=== PATIENT | male | born 1955 | race African-American/Black ===

== ENCOUNTER 2017-12-17 00:14 | Emergency (ER) | payer OTHER ==
[~2017-12-17 00:14] MED LIST: BAYER CHEWABLE81 MG PO; BOOST237 M1 PO; DEPO-PROVER150 MG/M1; GLUCOPHAGE1000 MG PO; GLYBURIDE 5 MG T5 M1 PO; NOVOLOG100 UNIT/1 SUBQ; PHENYTOIN50 MG PO; RESTORIL30 MG PO; SIMVASTATIN20 MG PO; VITAMIN D-32000 UNIT PO; VITAMIN D3400 UNI2 PO; ZYPREXA20 MG PO; [UNRECOGNIZED DRUG - OTHER] PO
[2017-12-17 00:54] LABS: ABSOLUTE NEUTROPHILS 9.2 thou/uL (1.4-8.2); BASOPHILS 0.5 % (0.0-2.0); EOSINOPHILS 2.7 % (0.0-3.0); HEMATOCRIT 39.5 % (42.0-52.0); HEMOGLOBIN 13.1 gm/dL (14.0-18.0); LYMPHOCYTES 9.8 % (24.0-44.0); MCH 28.8 pg (26.0-34.0); MCHC 33.2 g/dL (28.0-37.0); MCV 86.8 fL (80.0-100.0); PLATELET COUNT 214 thou/uL (150-400); RBC 4.55 mil/uL (4.50-6.00); RDW 14.1 % (10.5-14.5); WBC 11.5 thou/uL (4.0-11.0)
[2017-12-17 00:58] LABS: ANION GAP 16 mmol/L (7-16); BUN 19 mg/dL (7-18); CALCIUM 8.9 mg/dL (8.5-10.1); CHLORIDE 100 mmol/L (98-107); CO2 20 mmol/L (21-32); CREATININE 1.8 mg/dL (0.7-1.3); GLUCOSE 194 mg/dL (74-106); POTASSIUM 3.7 mmol/L (3.5-5.1); SODIUM 136 mmol/L (136-145)
[2017-12-17 01:07] LABS: ALBUMIN 3.6 g/dL (3.4-5.0); MAGNESIUM 2.1 mg/dL (1.8-2.4); SGOT 20 U/L (15-37); SGPT 29 U/L (30-65); TOTAL BILIRUBIN 0.2 mg/dL (<0.1-1.0); TOTAL PROTEIN 7.2 g/dL (6.4-8.2); TROPONIN-I < 0.04 ng/mL (<0.06)
== END 2017-12-17 05:07 ==
LOC: ER 00:14
PROVIDERS: Emergency Medicine
DX: G40.909 Epilepsy, unspecified, not intractable, without status epilepticus (principal); E11.22 Type 2 diabetes mellitus with diabetic chronic kidney disease; N18.9 Chronic kidney disease, unspecified; K21.9 Gastro-esophageal reflux disease without esophagitis; F20.9 Schizophrenia, unspecified

== ENCOUNTER 2018-02-24 22:20 | Inpatient (IN) | payer OTHER ==
[~2018-02-24] VITALS: Ht 172.7 cm; Wt 61.1 kg
--- NOTE | ~2018-02-24 | EKG ---
[address] [employer] [place] [address] ELECTROCARDIOGRAM REPORT Name: HEENA NO Room #: 236-P ADM IN M.R.#: [id number] Admission: 02/25/18 Attend Phys: Gilberto Bishop Discharge: Date of : 57 Report #: [id number] THIS REPORT FOR: //name// [facility] ED Test Date: 2018-02-24 Test Time: 22:35:00 Pat Name: HEENA NO Department: Room: [facility] Gender: M Steel [employer]inder: jljose : 1955 Requested By: Dick Garza Order Number: [id number] MD: Randy Machuca Measurements Intervals Brady Rate: 117 P: 69 MI: 114 QRS: 74 QRSD: 77 T: 62 QT: 324 QTc: 452 Interpretive Statements Sinus tachycardia Borderline low voltage, extremity leads Compared to ECG 04/10/2015 17:22:16 T-wave abnormality no longer present Electronically Signed On 02-25-2018 10:55:31 CDT by Randy Machuca [email or web address] <ELECTRONICALLY SIGNED> By: Randy Machuca MD, [facility] 02/25/18 1055 34 34 Randy Machuca MD, [facility] /EPI
[~2018-02-24 22:20] MED LIST changes: -DEPO-PROVER150 MG/M1; +DEPO-PROVER150 MG/M1 IM
[2018-02-24 22:22] VITALS: BP 118/65
[2018-02-24 22:48] LABS: ABSOLUTE NEUTROPHILS 7.6 thou/uL (1.4-8.2); BASOPHILS 0.6 % (0.0-2.0); EOSINOPHILS 4.9 % (0.0-3.0); HEMATOCRIT 38.2 % (42.0-52.0); LYMPHOCYTES 11.1 % (24.0-44.0); MCH 29.7 pg (26.0-34.0); MCHC 34.2 g/dL (28.0-37.0); MCV 86.9 fL (80.0-100.0); MONOCYTES 7.8 % (1.0-8.0); PLATELET COUNT 199 thou/uL (150-400); POLYS 75.6 % (36.0-66.0); RBC 4.39 mil/uL (4.50-6.00); RDW 14.2 % (10.5-14.5)
[2018-02-24 22:58] LABS: ANION GAP 20 mmol/L (7-16); BUN 23 mg/dL (7-18); CALCIUM 8.7 mg/dL (8.5-10.1); CHLORIDE 102 mmol/L (98-107); CO2 14 mmol/L (21-32); CREATININE 1.9 mg/dL (0.7-1.3); GLUCOSE 97 mg/dL (74-106); POTASSIUM 4.1 mmol/L (3.5-5.1); SODIUM 136 mmol/L (136-145)
[2018-02-24 23:15] LABS: URINE BILIRUBIN NEGATIVE (Negative); URINE BLOOD 1+ (Negative); URINE CLARITY CLEAR; URINE COLOR YELLOW; URINE GLUCOSE-RANDOM* NEGATIVE (Negative); URINE KETONES NEGATIVE (Negative); URINE NITRITE-REFLEX NEGATIVE (Negative); URINE PROTEIN (DIPSTICK) TRACE (Negative); URINE UROBILINOGEN 0.2 E.U./dl (0.2-1.0)
[2018-02-24 23:16] LABS: ALBUMIN 3.7 g/dL (3.4-5.0); SGOT 19 U/L (15-37); SGPT 26 U/L (30-65); TOTAL BILIRUBIN 0.2 mg/dL (<0.1-1.0); TOTAL PROTEIN 7.7 g/dL (6.4-8.2); TROPONIN-I <0.06 ng/mL (<0.06)
[2018-02-24 23:20] LABS: URINE LEUKOCYTES-REFLEX 1+ (Negative)
[2018-02-24 23:28] LABS: BACTERIA-REFLEX 1-9 Few /HPF (None Seen); CASTS None Seen /LPF (None Seen); CRYSTALS None Seen /LPF (None Seen); MUCUS 0-3 Light strn/LPF (None Seen); SQUAMOUS None Seen /LPF (0-3); URINE RBC 0-2 Rare /HPF (0-2); URINE WBC-REFLEX 0-5 Rare /HPF (0-5)
[2018-02-25] VITALS (20 sets, daily range): BP systolic 130–151; BP diastolic 64–94
[2018-02-25] MEDS ORDERED: CARVEDILOL3.125 MG PO (01:25)
[2018-02-25] MEDS ORDERED: VIMPAT50 MG PO (01:26)
[2018-02-25] MEDS ORDERED: FLOMAX0.4 MG PO (01:27)
[2018-02-25] MEDS ORDERED: MIRALAX17 GM PO (01:28)
[2018-02-25] MEDS ORDERED: SENNA S TABLET1 EACH PO (01:29)
[2018-02-25] MEDS ORDERED: LISINOPRIL2.5 MG PO (01:29)
[2018-02-25 08:46] LABS: CALCIUM 8.4 mg/dL (8.5-10.1); CREATININE 1.5 mg/dL (0.7-1.3); POTASSIUM 4.1 mmol/L (3.5-5.1)
[2018-02-26] VITALS (10 sets, daily range): BP systolic 112–169; BP diastolic 70–92
[2018-02-26 10:44] LABS: ALBUMIN 3.2 g/dL (3.4-5.0); CALCIUM 8.2 mg/dL (8.5-10.1); CREATININE 1.2 mg/dL (0.7-1.3); MAGNESIUM 1.7 mg/dL (1.8-2.4); POTASSIUM 3.5 mmol/L (3.5-5.1); TOTAL BILIRUBIN 0.5 mg/dL (<0.1-1.0); TOTAL PROTEIN 6.4 g/dL (6.4-8.2)
[2018-02-26 10:45] LABS: HEMATOCRIT 37.4 % (42.0-52.0); HEMOGLOBIN 12.8 gm/dL (14.0-18.0); MCH 29.3 pg (26.0-34.0); MCHC 34.2 g/dL (28.0-37.0); MCV 85.6 fL (80.0-100.0); RBC 4.37 mil/uL (4.50-6.00); RDW 14.3 % (10.5-14.5); WBC 12.1 thou/uL (4.0-11.0)
[2018-02-27 03:21] LABS: HEMATOCRIT 41.2 % (42.0-52.0); HEMOGLOBIN 13.9 gm/dL (14.0-18.0); MCH 29.3 pg (26.0-34.0); MCHC 33.8 g/dL (28.0-37.0); MCV 86.5 fL (80.0-100.0); RBC 4.76 mil/uL (4.50-6.00); RDW 14.4 % (10.5-14.5); WBC 11.2 thou/uL (4.0-11.0)
[2018-02-27 03:45] LABS: CALCIUM 9.6 mg/dL (8.5-10.1); CREATININE 1.3 mg/dL (0.7-1.3); MAGNESIUM 1.8 mg/dL (1.8-2.4); POTASSIUM 3.8 mmol/L (3.5-5.1)
[2018-02-27 07:43] VITALS: BP 140/74
[2018-02-27 10:11] VITALS: BP 120/53
[2018-02-27] MEDS ORDERED: LEVAQUIN 500 M500 M1 PO (16:41)
[2018-02-27] MEDS ORDERED: VIMPAT100 MG PO (16:42)
[2018-02-27] MEDS ORDERED: ZYPREXA 5 MG TAB5 M1 PO (16:42)
[2018-02-27] MEDS ORDERED: REMERON 30 MG T30 M1 PO (16:42)
[2018-02-27 17:23] VITALS: BP 139/77
== END 2018-02-27 17:51 | DRG 872 ==
LOC: ER 22:20 → EROBS 02-25 → 2N 02-25 → ICU 02-25 00:57 → 2N 02-26 11:25
PROVIDERS: Emergency Medicine; Hospitalist; Internal Medicine; Nurse Practitioner Acute Care
DX: A41.9 Sepsis, unspecified organism (principal); N39.0 Urinary tract infection, site not specified; G81.94 Hemiplegia, unspecified affecting left nondominant side; M62.82 Rhabdomyolysis; R65.20 Severe sepsis without septic shock; K21.9 Gastro-esophageal reflux disease without esophagitis; I12.9 Hypertensive chronic kidney disease with stage 1 through stage 4 chronic kidney disease, or unspecified chronic kidney disease; E11.22 Type 2 diabetes mellitus with diabetic chronic kidney disease; N18.3 Chronic kidney disease, stage 3 (moderate); F20.9 Schizophrenia, unspecified; G40.909 Epilepsy, unspecified, not intractable, without status epilepticus; N40.0 Benign prostatic hyperplasia without lower urinary tract symptoms; E83.42 Hypomagnesemia; R41.0 Disorientation, unspecified; Z79.82 Long term (current) use of aspirin; Z79.899 Other long term (current) drug therapy; Z87.820 Personal history of traumatic brain injury
CPT/HCPCS: 10078; 10797

== ENCOUNTER 2018-02-27 21:00 | Inpatient (IN) | payer OTHER ==
[~2018-02-27] VITALS: Ht 172.7 cm; Wt 58.6 kg
[~2018-02-27 21:00] MED LIST changes: +CARVEDILOL3.125 MG PO; +FLOMAX0.4 MG PO; +LEVAQUIN 500 M500 M1 PO; +LISINOPRIL2.5 MG PO; +MIRALAX17 GM PO; +REMERON 30 MG T30 M1 PO; +SENNA S TABLET1 EACH PO; +VIMPAT100 MG PO; +VIMPAT50 MG PO; +ZYPREXA 5 MG TAB5 M1 PO
[2018-02-27 21:07] VITALS: BP 156/81
[2018-02-27 22:31] LABS: ABSOLUTE NEUTROPHILS 9.3 thou/uL (1.4-8.2); BASOPHILS 0.2 % (0.0-2.0); EOSINOPHILS 3.2 % (0.0-3.0); HEMATOCRIT 38.6 % (42.0-52.0); HEMOGLOBIN 13.1 gm/dL (14.0-18.0); LYMPHOCYTES 13.2 % (24.0-44.0); MCH 29.1 pg (26.0-34.0); MCHC 34.1 g/dL (28.0-37.0); MCV 85.4 fL (80.0-100.0); MONOCYTES 9.2 % (1.0-8.0); PLATELET COUNT 173 thou/uL (150-400); POLYS 74.2 % (36.0-66.0); RBC 4.52 mil/uL (4.50-6.00); RDW 14.3 % (10.5-14.5); WBC 12.6 thou/uL (4.0-11.0)
[2018-02-27 22:46] LABS: CALCIUM 9.4 mg/dL (8.5-10.1); CREATININE 1.6 mg/dL (0.7-1.3); POTASSIUM 3.3 mmol/L (3.5-5.1)
[2018-02-27 23:05] LABS: ALBUMIN 3.8 g/dL (3.4-5.0); DIRECT BILIRUBIN < 0.1 mg/dL (<0.1-0.3); SGOT 111 U/L (15-37); SGPT 52 U/L (30-65); TOTAL BILIRUBIN 0.4 mg/dL (<0.1-1.0); TOTAL PROTEIN 7.8 g/dL (6.4-8.2)
[2018-02-28] VITALS (16 sets, daily range): BP systolic 119–178; BP diastolic 68–100
[2018-02-28 04:39] LABS: URINE BILIRUBIN NEGATIVE (Negative); URINE BLOOD 1+ (Negative); URINE CLARITY CLEAR; URINE COLOR YELLOW; URINE GLUCOSE-RANDOM* NEGATIVE (Negative); URINE KETONES 1+ (Negative); URINE LEUKOCYTES-REFLEX NEGATIVE (Negative); URINE NITRITE-REFLEX NEGATIVE (Negative); URINE PROTEIN (DIPSTICK) NEGATIVE (Negative); URINE UROBILINOGEN 0.2 E.U./dl (0.2-1.0)
[2018-02-28 04:46] LABS: CASTS None Seen /LPF (None Seen); MUCUS None Seen strn/LPF (None Seen); SQUAMOUS None Seen /LPF (0-3); URINE RBC 0-2 Rare /HPF (0-2); URINE WBC-REFLEX 0-5 Rare /HPF (0-5)
[2018-02-28 04:48] LABS: AMP/METHAMP Negative (Negative); BARBITURATES Negative (Negative); BENZODIAZEPINES POSITIVE (Negative); COCAINE Negative (Negative); METHADONE Negative (Negative); OPIATES Negative (Negative); PCP Negative (Negative)
[2018-02-28 04:49] LABS: BACTERIA-REFLEX 1-9 Few /HPF (None Seen); CRYSTALS None Seen /LPF (None Seen)
[2018-02-28 17:41] LABS: MAGNESIUM 1.6 mg/dL (1.8-2.4); POTASSIUM 3.8 mmol/L (3.5-5.1)
[2018-03-01] VITALS (20 sets, daily range): BP systolic 124–173; BP diastolic 73–110
[2018-03-02] VITALS (19 sets, daily range): BP systolic 106–171; BP diastolic 61–96
[2018-03-02 06:14] LABS: HEMATOCRIT 35.7 % (42.0-52.0); HEMOGLOBIN 12.4 gm/dL (14.0-18.0); MCH 29.7 pg (26.0-34.0); MCHC 34.8 g/dL (28.0-37.0); MCV 85.3 fL (80.0-100.0); RBC 4.19 mil/uL (4.50-6.00); RDW 14.2 % (10.5-14.5); WBC 10.9 thou/uL (4.0-11.0)
[2018-03-02 06:48] LABS: CALCIUM 8.8 mg/dL (8.5-10.1); CREATININE 1.2 mg/dL (0.7-1.3); MAGNESIUM 1.6 mg/dL (1.8-2.4); POTASSIUM 3.4 mmol/L (3.5-5.1)
[2018-03-03] VITALS (17 sets, daily range): BP systolic 105–170; BP diastolic 61–106
[2018-03-04] VITALS (21 sets, daily range): BP systolic 126–181; BP diastolic 56–111
[2018-03-04 10:17] LABS: HEMATOCRIT 35.4 % (42.0-52.0); MCH 29.3 pg (26.0-34.0); MCV 86.2 fL (80.0-100.0); PLATELET COUNT 199 thou/uL (150-400); RBC 4.11 mil/uL (4.50-6.00); RDW 13.9 % (10.5-14.5); WBC 10.7 thou/uL (4.0-11.0)
[2018-03-04 10:21] LABS: CALCIUM 8.5 mg/dL (8.5-10.1); CREATININE 1.3 mg/dL (0.7-1.3); POTASSIUM 3.4 mmol/L (3.5-5.1)
[2018-03-04 10:44] LABS: ABSOLUTE NEUTROPHILS 9.1 thou/uL (1.4-8.2)
[2018-03-05] VITALS (21 sets, daily range): BP systolic 100–158; BP diastolic 47–120
[2018-03-05 03:43] LABS: ABSOLUTE NEUTROPHILS 6.1 thou/uL (1.4-8.2); BASOPHILS 2.2 % (0.0-2.0); EOSINOPHILS 4.9 % (0.0-3.0); HEMOGLOBIN 12.2 gm/dL (14.0-18.0); LYMPHOCYTES 21.8 % (24.0-44.0); MCH 29.2 pg (26.0-34.0); MCHC 33.9 g/dL (28.0-37.0); MCV 86.1 fL (80.0-100.0); MONOCYTES 10.8 % (1.0-8.0); PLATELET COUNT 222 thou/uL (150-400); POLYS 60.3 % (36.0-66.0); RBC 4.18 mil/uL (4.50-6.00); RDW 14.1 % (10.5-14.5); WBC 10.1 thou/uL (4.0-11.0)
[2018-03-05 04:06] LABS: CALCIUM 8.6 mg/dL (8.5-10.1); CREATININE 1.1 mg/dL (0.7-1.3); POTASSIUM 3.4 mmol/L (3.5-5.1)
[2018-03-06] VITALS (15 sets, daily range): BP systolic 117–177; BP diastolic 68–127
[2018-03-07 04:05] VITALS: BP 139/80
[2018-03-07 17:05] VITALS: BP 130/71
[2018-03-07 19:27] VITALS: BP 144/86
[2018-03-08 03:25] VITALS: BP 143/73
[2018-03-08 10:09] VITALS: BP 119/54
[2018-03-08 17:08] VITALS: BP 103/41
[2018-03-09 03:17] VITALS: BP 95/57
[2018-03-09 05:56] LABS: HEMATOCRIT 36.6 % (42.0-52.0); HEMOGLOBIN 12.5 gm/dL (14.0-18.0); MCH 29.7 pg (26.0-34.0); MCHC 34.2 g/dL (28.0-37.0); MCV 86.8 fL (80.0-100.0); RBC 4.22 mil/uL (4.50-6.00); RDW 14.5 % (10.5-14.5); WBC 9.3 thou/uL (4.0-11.0)
[2018-03-09 06:18] LABS: ALBUMIN 3.3 g/dL (3.4-5.0); DIRECT BILIRUBIN < 0.1 mg/dL (<0.1-0.3); SGOT 39 U/L (15-37); SGPT 48 U/L (30-65); TOTAL BILIRUBIN 0.4 mg/dL (<0.1-1.0); TOTAL PROTEIN 7.9 g/dL (6.4-8.2)
[2018-03-09 08:00] VITALS: BP 120/61
[2018-03-09 15:50] VITALS: BP 96/54
[2018-03-09 19:14] VITALS: BP 114/89
[2018-03-10 06:33] VITALS: BP 105/46
[2018-03-10 10:56] LABS: URINE BILIRUBIN NEGATIVE (Negative); URINE BLOOD 1+ (Negative); URINE CLARITY HAZY; URINE COLOR YELLOW; URINE GLUCOSE-RANDOM* NEGATIVE (Negative); URINE KETONES TRACE (Negative); URINE LEUKOCYTES TRACE (Negative); URINE NITRITE POSITIVE (Negative); URINE PROTEIN (DIPSTICK) NEGATIVE (Negative); URINE SPECIFIC GRAVITY 1.015 (1.005-1.035); URINE UROBILINOGEN 0.2 E.U./dl (0.2-1.0)
[2018-03-10 11:37] LABS: CASTS None Seen /LPF (None Seen); CRYSTALS None Seen /LPF (None Seen); URINE WBC 6-15 Few /HPF (0-5)
[2018-03-10 11:38] LABS: BACTERIA >30 Many /HPF (None Seen); URINE RBC 0-2 Rare /HPF (0-2)
[2018-03-10 11:39] LABS: SQUAMOUS 0-3 Few /LPF (0-3)
[2018-03-10 16:00] VITALS: BP 122/68
[2018-03-10 19:21] VITALS: BP 139/66
[2018-03-11 06:48] VITALS: BP 161/75
[2018-03-11 08:00] VITALS: BP 109/72
[2018-03-11] MEDS ORDERED: BANOPHEN25 M1 PO (13:44)
[2018-03-11] MEDS ORDERED: NICOTINE TRANSD14 M1 TRANSDERM (13:45)
[2018-03-11] MEDS ORDERED: ACETAMINOPHEN325 M1 PO (13:45)
[2018-03-11] MEDS ORDERED: DIVALPROEX SOD125 MG PO (13:45)
[2018-03-11] MEDS ORDERED: ATIVAN1 MG PO (13:46)
[2018-03-11 16:00] VITALS: BP 115/51
== END 2018-03-11 17:00 | DRG 682 ==
LOC: ER 21:00 → EROBS 02-28 00:42 → ICU 02-28 00:42 → 4W 03-06 17:47
PROVIDERS: Emergency Medicine; Hospitalist; Internal Medicine; Nurse Practitioner; Psychiatry & Neurology Psychiatry
DX: N17.9 Acute kidney failure, unspecified (principal); E43 Unspecified severe protein-calorie malnutrition; G93.40 Encephalopathy, unspecified; N39.0 Urinary tract infection, site not specified; M62.82 Rhabdomyolysis; Z68.1 Body mass index [BMI] 19.9 or less, adult; E11.9 Type 2 diabetes mellitus without complications; K21.9 Gastro-esophageal reflux disease without esophagitis; N18.9 Chronic kidney disease, unspecified; R41.0 Disorientation, unspecified; E87.6 Hypokalemia; I12.9 Hypertensive chronic kidney disease with stage 1 through stage 4 chronic kidney disease, or unspecified chronic kidney disease; G40.909 Epilepsy, unspecified, not intractable, without status epilepticus; R00.0 Tachycardia, unspecified; F20.9 Schizophrenia, unspecified; R13.10 Dysphagia, unspecified; F29 Unspecified psychosis not due to a substance or known physiological condition; Z87.820 Personal history of traumatic brain injury; Z79.82 Long term (current) use of aspirin; Z79.899 Other long term (current) drug therapy
CPT/HCPCS: 10047; 10078